=== PATIENT | female | born 1950 | race Caucasian/White ===

== ENCOUNTER 2024-01-03 08:48 | Emergency (ER) | payer OTHER ==
[2024-01-03 09:21] VITALS: BP 159/72; PULSE 88; RESP 17; TEMP 98.7; BMI 31.3
[2024-01-03 10:44] LABS: PROTHROMBIN TIME (PATIENT) 11.4 SEC (9.7-13.0)
[2024-01-03 10:52] LABS: HEMATOCRIT 47.4 % (32.4-45.2); HEMOGLOBIN 15.3 G/dL (10.7-15.3); MCH 29.2 pg (25.7-33.7); MCHC 32.3 g/dl (32.0-36.0); MEAN CELL VOLUME 90.3 fl (80-96); MEAN PLT VOLUME 8.8 fl (7.5-11.1); PLATELET COUNT 168.6 10^3/uL (134-434); RBC 5.25 10^6/uL (3.60-5.2); RDW 14.6 % (11.6-15.6); WHITE BLOOD COUNT 5.4 10^3/uL (4.0-10.8)
[2024-01-03 10:57] LABS: ALBUMIN 4.7 g/dl (3.4-5.0); ALK PHOS 57 U/L (45-117); ANION GAP 7 mmol/L (4-13); BILIRUBIN,TOTAL 0.7 mg/dl (0.2-1); CALCIUM 9.8 mg/dl (8.5-10.1); CHLORIDE 104 mmol/L (98-107); CO2 28 mmol/L (21-32); CREATININE 0.7 mg/dl (0.6-1.3); GLUCOSE,RANDOM 107 mg/dl (74-106); SGOT/AST 15 U/L (15-37); SGPT/ALT 14 U/L (7-52); SODIUM 139 mmol/L (136-145)
[2024-01-03 15:24] LABS: PLATELET ESTIMATE ADEQUATE
== END 2024-01-03 13:48 | disposition home or self-care (01) ==
LOC: FER 08:48
DX: R10.32 Left lower quadrant pain (principal); K57.90 Diverticulosis of intestine, part unspecified, without perforation or abscess without bleeding; R91.1 Solitary pulmonary nodule; R07.9 Chest pain, unspecified
CPT/HCPCS: 36415; 71045-TC-FY; 74177-TC; 80053; 81003; 81015; 83735; 84484; 85027; 85610; 87086; 93005; 99285-25